=== PATIENT | female | born 1970 | race Caucasian/White ===

== ENCOUNTER 2024-01-12 20:44 | Emergency (ER) | payer OTHER ==
[~2024-01-12] VITALS: Ht 160 cm; Wt 74.8 kg
[2024-01-12 20:52] VITALS: BP 100/63; PULSE 88; RESP 16; TEMP 97.4; O2SAT 100
[2024-01-12 21:20] VITALS: BP 100/63; PULSE 88; RESP 16; TEMP 97.4; O2SAT 97
[2024-01-12] MEDS: KETOROLAC 30 MG/ML VIAL IM ONE (22:10)
[2024-01-12] MEDS: ACETAMINOPHEN EXTRA STRENGTH 500 MG TAB PO ONE (22:11)
[2024-01-12] MEDS ORDERED: PENI500T20 PO (23:54)
== END 2024-01-12 23:59 | disposition home or self-care (01) ==
LOC: MED 20:44
DX: K08.89 Other specified disorders of teeth and supporting structures (principal); Z79.899 Other long term (current) drug therapy; Z85.3 Personal history of malignant neoplasm of breast
CPT/HCPCS: 70450; 70486; 96372; 99285; J1885

== ENCOUNTER 2024-02-22 10:16 | Emergency (ER) | payer OTHER ==
[~2024-02-22] VITALS: Ht 157.5 cm; Wt 60.4 kg
[~2024-02-22 10:16] MED LIST: PENI500T20 PO
[2024-02-22 10:37] VITALS: BP 102/61; PULSE 86; RESP 18; TEMP 97.6; O2SAT 99
[2024-02-22] MEDS ORDERED: AMOX1TAB8 PO (13:13)
[2024-02-22] MEDS ORDERED: ACET500T99 PO (13:13)
[2024-02-22] MEDS: KETOROLAC 30 MG/ML VIAL IM ONE (13:23)
[2024-02-22 13:28] VITALS: BP 102/61; PULSE 91; RESP 18; TEMP 97.3; O2SAT 99
== END 2024-02-22 13:27 | disposition home or self-care (01) ==
LOC: MED 10:16
DX: K04.7 Periapical abscess without sinus (principal); K12.0 Recurrent oral aphthae; M53.3 Sacrococcygeal disorders, not elsewhere classified; Z85.3 Personal history of malignant neoplasm of breast; Z79.899 Other long term (current) drug therapy
CPT/HCPCS: 96372; 99283; J1885